=== PATIENT | female | born 1965 | race Caucasian/White ===

== ENCOUNTER → 2017-05-18 | Outpatient (CLI) | payer BC ==
--- NOTE | 2017-05-19 15:17 | MM ---
Reason for exam: screening (asymptomatic). Last mammogram was performed 1 year and 2 months ago. History: Patient is nulliparous. Physical Findings: A clinical breast exam by your physician is recommended on an annual basis and results should be correlated with mammographic findings. MG Screening Mammo w CAD Bilateral CC and MLO view(s) were taken. Prior study comparison: March 24, 2016, bilateral MG screening mammo w CAD. The breast tissue is heterogeneously dense. This may lower the sensitivity of mammography. No significant changes when compared with prior studies. ASSESSMENT: Benign, BI-RAD 2 RECOMMENDATION: Routine screening mammogram of both breasts in 1 year.
== END | disposition home or self-care (01) ==
LOC: RADMAMWWP 07:30
PROVIDERS: ATTEND Family Medicine
DX: Z12.31 Encounter for screening mammogram for malignant neoplasm of breast (principal)

== ENCOUNTER → 2018-12-06 | Outpatient (CLI) | payer BC ==
--- NOTE | 2018-12-07 11:59 | MM ---
Reason for exam: screening (asymptomatic). Last mammogram was performed 1 year and 7 months ago. History: Patient is nulliparous. Physical Findings: A clinical breast exam by your physician is recommended on an annual basis and results should be correlated with mammographic findings. MG Screening Mammo w CAD Bilateral CC and MLO view(s) were taken. Prior study comparison: May 18, 2017, bilateral MG screening mammo w CAD. March 24, 2016, bilateral MG screening mammo w CAD. The breast tissue is heterogeneously dense. This may lower the sensitivity of mammography. Stable benign calcifications. There is no discrete abnormality. No significant changes when compared with prior studies. ASSESSMENT: Benign, BI-RAD 2 RECOMMENDATION: Routine screening mammogram of both breasts in 1 year.
== END | disposition home or self-care (01) ==
LOC: RADMAMWWP 07:57
PROVIDERS: ATTEND Family Medicine
DX: Z12.31 Encounter for screening mammogram for malignant neoplasm of breast (principal)
CPT/HCPCS: 77067

== ENCOUNTER → 2020-01-28 | Outpatient (CLI) | payer OTHER ==
--- NOTE | 2020-01-28 12:51 | XR ---
EXAMINATION TYPE: XR chest 2V DATE OF EXAM: 01/28/2020 COMPARISON: None INDICATION: Pneumonitis due to inhalation of bleach TECHNIQUE: Frontal and lateral views of the chest are obtained. FINDINGS: The heart size is normal. The pulmonary vasculature is normal. The lungs are clear. IMPRESSION: 1. No acute pulmonary process.
== END | disposition home or self-care (01) ==
LOC: RADXRMAIN 12:19
PROVIDERS: ATTEND Emergency Medicine
DX: J69.8 Pneumonitis due to inhalation of other solids and liquids (principal)
CPT/HCPCS: 71046

== ENCOUNTER → 2020-02-16 | Outpatient (CLI) | payer BC | END | disposition home or self-care (01) | LOC: LABWHC1 10:46 | PROVIDERS: ATTEND Surgery | DX: U07.1 COVID-19 (principal) | CPT/HCPCS: 87635 ==

== ENCOUNTER 2020-02-18 09:41 | Day surgery (SDC) | payer BC ==
[~2020-02-18 09:41] MED LIST: LACTATED RINGERS 1,000 ML IV SCH; LIDOCAINE 1% (10MG/ML) FOR IV START INTRADERMA PRN
[2020-02-18 11:28] VITALS: TEMP 97.9
[2020-02-18] MEDS ORDERED: PROPOFOL 10 MG/ML 20 ML VIAL IV ONE (11:43)
--- NOTE | 2020-02-18 11:50 | P.GSHP ---
History of Present Illness H&P Date: 02/18/20 Chief Complaint: GERD This a 54-year-old female presents today for EGD. Patient with GERD. Medications and Allergies Home Medications Medication Instructions Recorded Confirmed Type Levothyroxine Sodium [Synthroid] 50 mcg PO DAILY 02/18/20 02/18/20 History Allergies Allergy/AdvReac Type Severity Reaction Status Date / Time No Known Allergies Allergy Verified 02/18/20 11:10 Surgical - Exam Vital Signs Temp Pulse Resp BP Pulse Ox 97.9 F 77 17 140/75 98 02/18/20 11:27 02/18/20 11:27 02/18/20 11:27 02/18/20 11:27 02/18/20 11:27 - General well developed, well nourished, no distress - Eyes PERRL - ENT normal pinna - Neck no masses - Respiratory normal expansion - Cardiovascular Rhythm: regular - Abdomen Abdomen: soft, non tender Assessment and Plan Assessment: GERD. We'll perform EGD.
--- NOTE | 2020-02-18 12:00 | P.OP ---
Date of Procedure: 02/18/20 Preoperative Diagnosis: GERD Postoperative Diagnosis: Antral gastritis Small hiatal hernia Esophagitis Procedure(s) Performed: EGD Anesthesia: MAC Surgeon: Dallas Valera Pathology: other (Antrum, esophagus) Condition: stable Disposition: PACU Description of Procedure: Patient's placed on the endoscopy table in the lateral position. She received IV sedation. The gastroscope placed oropharynx and passed in the esophagus and into the stomach. Scope was then placed through the pylorus. The first and second portion of the duodenum appeared normal. Scope was then brought back the antrum this. Mildly inflamed. A biopsies performed. Scope was then retroflexed the remainder of the stomach appeared normal. There was a small hiatal hernia. The GE junction was at 38 cm. The distal esophagus appeared inflamed. A biopsies performed. The proximal esophagus appeared normal. Scope was withdrawn for patient.
[2020-02-18 12:08] VITALS: RESP 16
[2020-02-18 12:45] VITALS: BP 109/71; PULSE 73
== END 2020-02-18 12:45 | disposition home or self-care (01) ==
LOC: ORWHC2ENDO 09:41
PROVIDERS: ATTEND Surgery
DX: K29.50 Unspecified chronic gastritis without bleeding (principal); K21.0 Gastro-esophageal reflux disease with esophagitis; K44.9 Diaphragmatic hernia without obstruction or gangrene; Z79.890 Hormone replacement therapy; E07.9 Disorder of thyroid, unspecified
CPT/HCPCS: 88305; 43239; J2704

== ENCOUNTER → 2020-08-19 | Outpatient (CLI) | payer BC ==
--- NOTE | 2020-08-20 09:26 | MM ---
Reason for exam: screening (asymptomatic). Last mammogram was performed 1 year and 8 months ago. History: Patient is nulliparous. Physical Findings: A clinical breast exam by your physician is recommended on an annual basis and results should be correlated with mammographic findings. MG Screening Mammo w CAD Bilateral CC and MLO view(s) were taken. Prior study comparison: December 06, 2018, bilateral MG screening mammo w CAD. May 18, 2017, bilateral MG screening mammo w CAD. The breast tissue is heterogeneously dense. This may lower the sensitivity of mammography. Finding #1: There is a 7 mm equal density (isodense) mass in the upper outer quadrant of the right breast. Finding #2: There are typically benign calcifications in both breasts. ASSESSMENT: Incomplete: need additional imaging evaluation, BI-RAD 0 RECOMMENDATION: Special view mammogram of the right breast. If lesion persists on supplemental views, image directed ultrasound is recommended. [facility] will attempt to contact patient to return for supplemental views and ultrasound if indicated.
== END | disposition home or self-care (01) ==
LOC: RADMAMWWP 07:49
PROVIDERS: ATTEND Family Medicine
DX: Z12.31 Encounter for screening mammogram for malignant neoplasm of breast (principal)
CPT/HCPCS: 77067

== ENCOUNTER → 2020-08-21 | Outpatient (CLI) | payer BC ==
--- NOTE | 2020-08-21 09:02 | MM ---
Reason for exam: additional evaluation requested from abnormal screening. Last mammogram was performed less than 1 month ago. History: Patient is nulliparous. Physical Findings: Nurse did not find any significant physical abnormalities on exam. MG 3D Work Up W/Cad RT Spot compression CC, spot compression MLO, and LM view(s) were taken of the right breast. Prior study comparison: August 19, 2020, bilateral MG screening mammo w CAD. December 06, 2018, bilateral MG screening mammo w CAD. The breast tissue is heterogeneously dense. This may lower the sensitivity of mammography. There is no discrete abnormality. These results were verbally communicated with the patient and result sheet given to the patient on 08/21/20. ASSESSMENT: Negative, BI-RAD 1 RECOMMENDATION: Return to routine screening mammogram schedule for both breasts.
== END | disposition home or self-care (01) ==
LOC: RADMAMWWP 06:57
PROVIDERS: ATTEND Family Medicine
DX: R92.8 Other abnormal and inconclusive findings on diagnostic imaging of breast (principal)
CPT/HCPCS: 77061; 77065

== ENCOUNTER → 2021-10-21 | Outpatient (CLI) | payer BC ==
--- NOTE | 2021-10-22 14:07 | MM ---
Reason for exam: screening (asymptomatic). Last mammogram was performed 1 year and 2 months ago. History: Patient is nulliparous. Physical Findings: A clinical breast exam by your physician is recommended on an annual basis and results should be correlated with mammographic findings. MG Screening Mammo w CAD Bilateral CC and MLO view(s) were taken. Prior study comparison: August 21, 2020, right breast MG 3d work up w/cad RT. August 19, 2020, bilateral MG screening mammo w CAD. The breast tissue is heterogeneously dense. This may lower the sensitivity of mammography. There are benign appearing round calcifications bilaterally. There is no discrete abnormality. ASSESSMENT: Benign, BI-RAD 2 RECOMMENDATION: Routine screening mammogram of both breasts in 1 year.
== END | disposition home or self-care (01) ==
LOC: RADMAMWWP 16:03
PROVIDERS: ATTEND Family Medicine
DX: Z12.31 Encounter for screening mammogram for malignant neoplasm of breast (principal)
CPT/HCPCS: 77067

== ENCOUNTER 2022-04-24 09:10 | Observation (INO) | payer BC ==
[2022-04-24] MEDS ORDERED: NITROGLYCERIN OINT 1 INCH/GM PACKET TOPICAL STA (09:24)
[2022-04-24] MEDS ORDERED: ASPIRIN 81 MG PO STA (09:24)
--- NOTE | 2022-04-24 09:27 | ED ---
General Adult HPI - General Chief complaint: Chest Pain Stated complaint: chest pain Time Seen by Provider: 04/24/22 09:17 Source: patient, RN notes reviewed Mode of arrival: wheelchair Limitations: no limitations - History of Present Illness Initial comments: Patient is a pleasant 56-year-old female presenting to the emergency Department with chest discomfort. Patient has been having some symptoms for the past month. Patient also has a recent diagnosis of mouth cancer with plan for treatment starting in 10 days. Patient is supposed to have a heart catheterization coming up. Today discomfort seemed somewhat worse, rated 6/10. Discomfort with difficulty describing. There was some radiation towards the left arm. Patient was a little bit sweaty. No nausea. No dyspnea. Discomfort has improved and currently is 2/10. - Related Data Home Medications Medication Instructions Recorded Confirmed Levothyroxine Sodium [Synthroid] 50 mcg PO DAILY 02/18/20 02/18/20 Allergies Allergy/AdvReac Type Severity Reaction Status Date / Time No Known Allergies Allergy Verified 04/24/22 09:15 Review of Systems ROS Statement: Those systems with pertinent positive or pertinent negative responses have been documented in the HPI. ROS Other: All systems not noted in ROS Statement are negative. Constitutional: Denies: fever Eyes: Denies: eye pain ENT: Reports: as per HPI. Denies: ear pain Respiratory: Denies: cough, dyspnea Cardiovascular: Reports: as per HPI, chest pain Endocrine: Denies: fatigue Gastrointestinal: Denies: abdominal pain, nausea, vomiting Genitourinary: Denies: dysuria Musculoskeletal: Denies: back pain Skin: Denies: rash Neurological: Denies: weakness Past Medical History Past Medical History: Cancer Additional Past Medical History / Comment(s): oral cancer History of Any Multi-Drug Resistant Organisms: None Reported Past Surgical History: Hysterectomy Smoking Status: Never smoker Past Alcohol Use History: None Reported, Occasional Past Drug Use History: None Reported General Exam Limitations: no limitations General appearance: alert, in no apparent distress Head exam: Present: normocephalic Eye exam: Present: normal appearance ENT exam: Present: other (Moderate sized lesion left posterior tongue) Neck exam: Present: normal inspection Respiratory exam: Present: normal lung sounds bilaterally Cardiovascular Exam: Present: regular rate, normal heart sounds Expanded Peripheral pulses: 2+: Radial (R), Radial (L), Posterior Tibialis (R), Posterior Tibialis (L) GI/Abdominal exam: Present: soft. Absent: tenderness Extremities exam: Present: normal inspection. Absent: pedal edema, calf tenderness Neurological exam: Present: alert Psychiatric exam: Present: normal affect, normal mood Skin exam: Present: normal color Course Vital Signs 04/24/22 09:12 Temperature 97.6 F Pulse Rate 47 L Respiratory 18 Rate Blood Pressure 145/80 O2 Sat by Pulse 98 Oximetry EKG Findings - EKG Comments: EKG Findings:: Sinus rhythm with frequent supraventricular premature complexes with a rate of 68. [place] 1622. QRS 84. QT 391. QTC 408. Normal axis. Normal QRS. No acute ST change. Medical Decision Making - Medical Decision Making Patient reevaluated and resting comfortably in bed. Patient and family updated on results and plan. Case discussed with Dr. Bowie, who will admit covering Dr. Torres, who admits for Dr. Julien. She does agree with ordering computed tomography scan - Lab Data Result diagrams: 04/24/22 09:36 04/24/22 09:36 Lab Results 04/24/22 04/24/22 04/24/22 Range/Units 09:36 09:36 09:36 WBC 7.2 (3.8-10.6) k/uL RBC 4.78 (3.80-5.40) m/uL Hgb 14.7 (11.4-16.0) gm/dL Hct 44.9 (34.0-46.0) % MCV 94.0 (80.0-100.0) fL MCH 30.8 (25.0-35.0) pg MCHC 32.8 (31.0-37.0) g/dL RDW 12.7 (11.5-15.5) % Plt Count 203 (150-450) k/uL MPV 8.1 Neutrophils % 72 % Lymphocytes % 15 % Monocytes % 8 % Eosinophils % 3 % Basophils % 1 % Neutrophils # 5.2 (1.3-7.7) k/uL Lymphocytes # 1.1 (1.0-4.8) k/uL Monocytes # 0.6 (0-1.0) k/uL Eosinophils # 0.2 (0-0.7) k/uL Basophils # 0.1 (0-0.2) k/uL PT 10.4 (9.0-12.0) sec INR 0.9 (<1.2) APTT 24.7 (22.0-30.0) sec D-Dimer 0.72 H (<0.60) mg/L FEU Sodium 138 (137-145) mmol/L Potassium 4.0 (3.5-5.1) mmol/L Chloride 107 (98-107) mmol/L Carbon Dioxide 25 (22-30) mmol/L Anion Gap 6 mmol/L BUN 24 H (7-17) mg/dL Creatinine 0.59 (0.52-1.04) mg/dL Est GFR (CKD-EPI)AfAm >90 (>60 ml/min/1.73 sqM) Est GFR (CKD-EPI)NonAf >90 (>60 ml/min/1.73 sqM) Glucose 104 H (74-99) mg/dL Calcium 9.0 (8.4-10.2) mg/dL Magnesium 2.0 (1.6-2.3) mg/dL Total Bilirubin 0.5 (0.2-1.3) mg/dL AST 29 (14-36) U/L ALT 24 (4-34) U/L Alkaline Phosphatase 75 (38-126) U/L Troponin I (0.000-0.034) ng/mL Total Protein 6.6 (6.3-8.2) g/dL Albumin 4.0 (3.5-5.0) g/dL 04/24/22 Range/Units 09:36 WBC (3.8-10.6) k/uL RBC (3.80-5.40) m/uL Hgb (11.4-16.0) gm/dL Hct (34.0-46.0) % MCV (80.0-100.0) fL MCH (25.0-35.0) pg MCHC (31.0-37.0) g/dL RDW (11.5-15.5) % Plt Count (150-450) k/uL MPV Neutrophils % % Lymphocytes % % Monocytes % % Eosinophils % % Basophils % % Neutrophils # (1.3-7.7) k/uL Lymphocytes # (1.0-4.8) k/uL Monocytes # (0-1.0) k/uL Eosinophils # (0-0.7) k/uL Basophils # (0-0.2) k/uL PT (9.0-12.0) sec INR (<1.2) APTT (22.0-30.0) sec D-Dimer (<0.60) mg/L FEU Sodium (137-145) mmol/L Potassium (3.5-5.1) mmol/L Chloride (98-107) mmol/L Carbon Dioxide (22-30) mmol/L Anion Gap mmol/L BUN (7-17) mg/dL Creatinine (0.52-1.04) mg/dL Est GFR (CKD-EPI)AfAm (>60 ml/min/1.73 sqM) Est GFR (CKD-EPI)NonAf (>60 ml/min/1.73 sqM) Glucose (74-99) mg/dL Calcium (8.4-10.2) mg/dL Magnesium (1.6-2.3) mg/dL Total Bilirubin (0.2-1.3) mg/dL AST (14-36) U/L ALT (4-34) U/L Alkaline Phosphatase (38-126) U/L Troponin I <0.012 (0.000-0.034) ng/mL Total Protein (6.3-8.2) g/dL Albumin (3.5-5.0) g/dL - Radiology Data Radiology results: image reviewed (Chest x-ray shows no acute process.) Disposition Clinical Impression: Chest pain Disposition: ADMITTED IP TO THIS [facility] Is patient prescribed a controlled substance at d/c from ED?: No Referrals: Kiera Julien DO [Primary Care Provider] - 1-2 days Time of Disposition: 11:02
[2022-04-24 10:05] LABS: Basophils # (A) 0.1 k/uL (0-0.2); Basophils % (A) 1 %; Eosinophils # (A) 0.2 k/uL (0-0.7); Eosinophils % (A) 3 %; HCT 44.9 % (34.0-46.0); HGB 14.7 gm/dL (11.4-16.0); Lymphocytes # (A) 1.1 k/uL (1.0-4.8); Lymphocytes % (A) 15 %; MCH 30.8 pg (25.0-35.0); MCHC 32.8 g/dL (31.0-37.0); Mean Platelet Volume 8.1; Monocytes # (A) 0.6 k/uL (0-1.0); Monocytes % (A) 8 %; Neutrophils # (A) 5.2 k/uL (1.3-7.7); Neutrophils % (A) 72 %; Platelet Count 203 k/uL (150-450); RBC 4.78 m/uL (3.80-5.40); RDW 12.7 % (11.5-15.5); WBC 7.2 k/uL (3.8-10.6)
--- NOTE | 2022-04-24 10:26 | XR ---
EXAMINATION TYPE: XR chest 2V DATE OF EXAM: 04/24/2022 COMPARISON: Chest x-ray January 28, 2020 HISTORY: Chest pain and lightheadedness. TECHNIQUE: Frontal and lateral views of the chest are obtained. FINDINGS: There is no suspicious focal air space opacity, pleural effusion, or pneumothorax seen. T he cardiac silhouette size remains within normal limits. The osseous structures are intact. Overlyi ng EKG leads noted on current study. IMPRESSION: No acute process. No significant change from prior.
[2022-04-24 10:34] LABS: ALT 24 U/L (4-34); AST 29 U/L (14-36); African American GFR (CKD) >90 (>60 ml/min/1.73 sqM); Alkaline Phosphatase 75 U/L (38-126); Anion Gap 6 mmol/L; Blood Urea Nitrogen 24 mg/dL (7-17); Carbon Dioxide 25 mmol/L (22-30); Chloride 107 mmol/L (98-107); Glucose 104 mg/dL (74-99); Non-African American GFR(CKD) >90 (>60 ml/min/1.73 sqM); Sodium 138 mmol/L (137-145); Total Bilirubin 0.5 mg/dL (0.2-1.3); Total Protein 6.6 g/dL (6.3-8.2)
[2022-04-24 10:40] LABS: INR 0.9 (<1.2); Partial Thromboplastin Time 24.7 sec (22.0-30.0); Prothrombin Time 10.4 sec (9.0-12.0)
[2022-04-24] MEDS ORDERED: NITROGLYCERIN SL TABS 0.4 MG TAB SUBLINGUAL PRN (11:03)
--- NOTE | 2022-04-24 12:18 | CT ---
EXAMINATION TYPE: CT angio chest DATE OF EXAM: 04/24/2022 COMPARISON: Same-day chest x-ray HISTORY: chest pain CT DLP: 242.4 mGycm. Automated Exposure Control for Dose Reduction was Utilized. CONTRAST: CTA scan of the thorax is performed with IV Contrast, patient injected with 62 mL of Isovue 370, pulm onary embolism protocol. MIP Images are created on CT scanner and reviewed. FINDINGS: LUNGS: The lungs are grossly clear, there is no concerning parenchymal mass or nodule identified. T here is no pleural effusion or pneumothorax seen. The tracheobronchial tree is patent. MEDIASTINUM: There is satisfactory enhancement of the pulmonary artery and its branches, there is no CT evidence for pulmonary embolism. Satisfactory enhancement of the thoracic aorta without aneurysm o r dissection. Mild peripheral plaque in the aortic arch. Small sized thyroid gland. There are no gre ater than 1 cm hilar or mediastinal lymph nodes. No cardiomegaly or pericardial effusion is seen. OTHER: Small 8 mm low dense right adrenal mass axial image 137 favors benign adenoma. IMPRESSION: No CT evidence for acute pulmonary embolism. No acute pulmonary process.
[2022-04-24] MEDS: NITROGLYCERIN OINT 1 INCH/GM PACKET TOPICAL SCH ×2 (14:03→17:02)
[2022-04-24] MEDS: LEVOTHYROXINE 50 MCG TAB PO SCH (14:40)
--- NOTE | 2022-04-24 20:09 | P.HPIM ---
History of Present Illness H&P Date: 04/24/22 Chief Complaint: Chest pain 56-year-old female presenting to the emergency Department with chest discomfort. Patient has been having some symptoms for the past month. Patient also has a recent diagnosis of mouth cancer with plan for treatment starting in 10 days. Patient is supposed to have a heart catheterization coming up. Today discomfort seemed somewhat worse, rated 6/10. Discomfort with difficulty describing. There was some radiation towards the left arm. Patient was a little bit sweaty. No nausea. No dyspnea. Discomfort has improved and currently is 2/10. EKG Findings:: Sinus rhythm with frequent supraventricular premature complexes with a rate of 68. [place] 1622. QRS 84. QT 391. QTC 408. Normal axis. Normal QRS. No acute ST change. Lab work reveals evidence of some 0.2, hemoglobin 14.7 and platelet count of 203, sodium 138, potassium 4.0, BUN/creatinine of 24/0.59 and blood glucose of 104; troponin of less than 0.012; d-dimer elevated at 0.7 to - CTA chest completed which is negative for PE Chest x-ray reveals no acute process Review of Systems REVIEW OF SYSTEMS: CONSTITUTIONAL: No fever, no malaise, no fatigue. HEENT: No recent visual problems or hearing problems. Denied any sore throat. CARDIOVASCULAR: chest pain, orthopnea, PND, no palpitations, no syncope. PULMONARY: No shortness of breath, no cough, no hemoptysis. GASTROINTESTINAL: No diarrhea, no nausea, no vomiting, no abdominal pain. NEUROLOGICAL: No headaches, no weakness, no numbness. HEMATOLOGICAL: Denies any bleeding or petechiae. GENITOURINARY: Denies any burning micturition, frequency, or urgency. MUSCULOSKELETAL/RHEUMATOLOGICAL: Denies any joint pain, swelling, or any muscle pain. ENDOCRINE: Denies any polyuria or polydipsia. The rest of the 14-point review of systems is negative. Past Medical History Past Medical History: Cancer Additional Past Medical History / Comment(s): oral cancer History of Any Multi-Drug Resistant Organisms: None Reported Past Surgical History: Hysterectomy Smoking Status: Never smoker Past Alcohol Use History: None Reported, Occasional Past Drug Use History: None Reported Medications and Allergies Home Medications Medication Instructions Recorded Confirmed Type Levothyroxine Sodium [Synthroid] 50 mcg PO DAILY 02/18/20 04/24/22 History Aspirin EC [Ecotrin Low Dose] 81 mg PO DAILY 04/24/22 04/24/22 History Atorvastatin [Lipitor] 20 mg PO HS 04/24/22 04/24/22 History oxyCODONE HCL 5 mg PO Q4H PRN 04/24/22 04/24/22 History Allergies Allergy/AdvReac Type Severity Reaction Status Date / Time tramadol AdvReac LIGHTHEADED Verified 04/24/22 11:57 Physical Exam Vitals: Vital Signs Temp Pulse Pulse Resp BP BP Pulse Ox 04/24/22 12:20 98.0 F 74 16 161/82 98 04/24/22 09:12 97.6 F 47 L 18 145/80 98 Intake and Output 04/23/22 04/24/22 04/24/22 22:59 06:59 14:59 Other: Weight 81.647 kg PHYSICAL EXAMINATION: GENERAL: The patient is alert and oriented x3, not in any acute distress. Well developed, well nourished. HEENT: Pupils are round and equally reacting to light. EOMI. No scleral icterus. No conjunctival pallor. Normocephalic, atraumatic. No pharyngeal erythema. No thyromegaly. CARDIOVASCULAR: S1 and S2 present. No murmurs, rubs, or gallops. PULMONARY: Chest is clear to auscultation, no wheezing or crackles. ABDOMEN: Soft, nontender, nondistended, normoactive bowel sounds. No palpable organomegaly. MUSCULOSKELETAL: No joint swelling or deformity. EXTREMITIES: No cyanosis, clubbing, or pedal edema. NEUROLOGICAL: Gross neurological examination did not reveal any focal deficits. SKIN: No rashes. Results CBC & Chem 7: 04/24/22 09:36 04/24/22 09:36 Labs: Abnormal Lab Results - Last 24 Hours (Table) 04/24/22 04/24/22 Range/Units 09:36 09:36 D-Dimer 0.72 H (<0.60) mg/L FEU BUN 24 H (7-17) mg/dL Glucose 104 H (74-99) mg/dL Thrombosis Risk Factor Assmnt - Choose All That Apply Each Factor Represents 1 point: Age 41-60 years, Obesity (BMI >25) Other Risk Factors: No Other congenital or acquired thrombophilia - If yes, enter type in comment: No Thrombosis Risk Factor Assessment Total Risk Factor Score: 2 Thrombosis Risk Factor Assessment Level: Low Risk Assessment and Plan Assessment: 1. Chest pain - We will monitor EKG and trend troponin; order 2-D echo; start patient on aspirin - Cardiology consult 2. Hypothyroidism; levothyroxine 50 MCG daily 3. Mild AK I; increase fluid intake DVT prophylaxis; SCDs CODE STATUS; full code
[2022-04-24] MEDS: ATORVASTATIN 20 MG TAB PO SCH (20:12)
[2022-04-25] MEDS: NITROGLYCERIN OINT 1 INCH/GM PACKET TOPICAL SCH ×5 (01:49→23:29)
[2022-04-25] MEDS: LEVOTHYROXINE 50 MCG TAB PO SCH (05:59)
[2022-04-25] MEDS: ASPIRIN 81 MG PO SCH (08:07)
[2022-04-25] MEDS ORDERED: ASPIRIN 325 MG TAB PO SCH (09:00)
[2022-04-25 10:27] LABS: Chol/HDL Ratio 2.79 Ratio; LDL Cholesterol,Calculated 60.2 mg/dL (0.0-131.0)
[2022-04-25] MEDS ORDERED: ATORVASTATIN 80 MG TAB PO STA (16:25)
[2022-04-25] MEDS ORDERED: NITROGLYCERIN SL TABS 0.4 MG TAB SUBLINGUAL PRN (16:25)
[2022-04-25] MEDS ORDERED: ASPIRIN 325 MG TAB PO STA (16:25)
[2022-04-25] MEDS ORDERED: ALPRAZolam 0.5 MG TAB PO PRN (16:25)
[2022-04-25] MEDS ORDERED: ALPRAZolam 0.25 MG TAB PO PRN (16:25)
--- NOTE | 2022-04-25 16:25 | P.CRDCN ---
History of Present Illness History of present illness: HISTORY OF PRESENTING ILLNESS Patient is pleasant 56-year-old female with history of hypothyroidism, hyperlipidemia and tongue cancer recently diagnosed and awaiting surgery. She has had workup through 140s and recently had a biopsy of her tongue. This came back cancerous and has not been any concern of metastasis however does cover the majority of the left side of her tongue. She underwent preoperative workup secondary to having some chest pain and underwent a stress test which was abnormal with recommendations for heart catheterization tomorrow at [facility]. She has been having off-and-on chest pain which is not typically associated with exertion however can occur when she is more stressed. Troponins noted to be normal 3, EKG normal sinus rhythm with no significant ST or T wave abnormalities and CTA showed no evidence for PE.. REVIEW OF SYSTEMS At the time of my exam: CONSTITUTIONAL: Denies fever or chills. CARDIOVASCULAR: +chest pain, no shortness of breath, orthopnea, PND or palpitations. RESPIRATORY: Denies cough. GASTROINTESTINAL: Denies abdominal pain, diarrhea, constipation, nausea or vomiting. MUSCULOSKELETAL: Denies myalgias. NEUROLOGIC: Denies numbness, tingling or weakness. ENDOCRINE: Denies fatigue, weight change, polydipsia or polyurina. GENITOURINARY: Denies burning, hematuria or urgency with micturation. HEMATOLOGIC: Denies history of anemia or bleeding. PHYSICAL EXAMINATION Vital signs reviewed. CONSTITUTIONAL: No apparent distress. HEENT: Head is normocephalic. Pupils are equal, round. Sclerae anicteric. Mucous membranes of the mouth are moist. No JVD. No carotid bruit. CHEST EXAMINATION: Lungs are clear to auscultation. No chest wall tenderness is noted on palpation or with deep breathing. HEART EXAMINATION: Regular rate and rhythm. S1, S2 heard. No murmurs, gallops or rub. ABDOMEN: Soft, nontender. Positive bowel sounds. EXTREMITIES: 2+ peripheral pulses, no lower extremity edema and no calf tenderness. NEUROLOGIC EXAMINATION: Patient is awake, alert and oriented x3. ASSESSMENT 1. Atypical chest pain, troponin is normal 3 2. Tongue cancer 3. Hyperlipidemia 4. Abnormal stress test 5. Preoperative cardiovascular exam PLAN Patient with prior workup with recommendations for heart catheterization. Patient had called [facility] and not on the list for procedure tomorrow. Discussed option for heart catheterization here and patient would prefer here for definitive answer. Left heart catheterization 04/26. [facility] Past Medical History Past Medical History: Cancer Additional Past Medical History / Comment(s): oral cancer History of Any Multi-Drug Resistant Organisms: None Reported Past Surgical History: Hysterectomy Smoking Status: Never smoker Past Alcohol Use History: None Reported, Occasional Past Drug Use History: None Reported Medications and Allergies Home Medications Medication Instructions Recorded Confirmed Type Levothyroxine Sodium [Synthroid] 50 mcg PO DAILY 02/18/20 04/24/22 History Aspirin EC [Ecotrin Low Dose] 81 mg PO DAILY 04/24/22 04/24/22 History Atorvastatin [Lipitor] 20 mg PO HS 04/24/22 04/24/22 History oxyCODONE HCL 5 mg PO Q4H PRN 04/24/22 04/24/22 History Allergies Allergy/AdvReac Type Severity Reaction Status Date / Time tramadol AdvReac LIGHTHEADED Verified 04/24/22 11:57 Physical Exam Vitals: Vital Signs Temp Pulse Resp BP Pulse Ox 04/25/22 15:18 98.4 F 64 16 109/73 96 04/25/22 08:12 16 04/25/22 07:19 98.0 F 55 L 16 106/68 98 04/25/22 03:24 98.0 F 59 L 17 110/72 96 04/25/22 01:56 86 04/24/22 19:21 98.0 F 86 16 117/75 94 L Intake and Output 04/25/22 04/25/22 04/25/22 06:59 14:59 22:59 Other: Voiding Method Toilet # Voids 2 1 2 Results 04/24/22 09:36 04/24/22 09:36 Cardiac Enzymes 04/24/22 Range/Units 15:58 Troponin I <0.012 (0.000-0.034) ng/mL Lipids 04/25/22 Range/Units 04:47 Triglycerides 126.00 (0.00-149.00) mg/dL Cholesterol 133.00 (0.00-200.00) mg/dL HDL Cholesterol 47.60 (40.00-60.00) mg/dL Cholesterol/HDL Ratio 2.79 Ratio Current Medications Generic Name Dose Route Start Last Admin Trade Name Freq PRN Reason Stop Dose Admin Aspirin 81 mg 04/25/22 09:00 04/25/22 08:07 Aspirin 81 Mg PO 81 mg DAILY YUNI Administration Atorvastatin Calcium 20 mg 04/24/22 21:00 04/24/22 20:12 Atorvastatin 20 Mg Tab PO 20 mg HS YUNI Administration Levothyroxine Sodium 50 mcg 04/24/22 13:15 04/25/22 05:59 Levothyroxine 50 Mcg Tab PO 50 mcg 0630 YUNI Administration Nitroglycerin 0.4 mg 04/24/22 11:03 Nitroglycerin Sl Tabs 0.4 Mg Tab SUBLINGUAL Q5M PRN Chest Pain Nitroglycerin 1 inch 04/24/22 12:00 04/25/22 12:59 Nitroglycerin Oint 1 Inch/Gm Packet TOPICAL Not Given Q6HR [facility] Oxycodone HCl 5 mg 04/24/22 13:12 04/25/22 03:06 Oxycodone Hcl 5 Mg Tab PO 5 mg Q4H PRN Administration Pain Intake and Output 04/25/22 04/25/22 04/25/22 06:59 14:59 22:59 Other: Voiding Method Toilet # Voids 2 1 2 04/24/22 09:36 04/24/22 09:36
--- NOTE | 2022-04-25 17:59 | P.PN ---
Subjective Progress Note Date: 04/25/22 Principal diagnosis: Chest pain/unstable angina 56-year-old female presenting to the emergency Department with chest discomfort. Patient has been having some symptoms for the past month. Patient also has a recent diagnosis of mouth cancer with plan for treatment starting in 10 days. Patient is supposed to have a heart catheterization coming up. Today discomfort seemed somewhat worse, rated 6/10. Discomfort with difficulty describing. There was some radiation towards the left arm. Patient was a little bit sweaty. No nausea. No dyspnea. Discomfort has improved and currently is 2/10. EKG Findings:: Sinus rhythm with frequent supraventricular premature complexes with a rate of 68. ND 1622. QRS 84. QT 391. QTC 408. Normal axis. Normal QRS. No acute ST change. Lab work reveals evidence of some 0.2, hemoglobin 14.7 and platelet count of 203, sodium 138, potassium 4.0, BUN/creatinine of 24/0.59 and blood glucose of 104; troponin of less than 0.012; d-dimer elevated at 0.7 to - CTA chest completed which is negative for PE Chest x-ray reveals no acute process 04/25/2022 Patient is seen and evaluated in room at bedside and denies any complaint of any further chest pain or shortness of breath; patient reports she has been scheduled for cardiac catheterization at [facility] tomorrow where she was diagnosed with oral cancer and will be starting her treatment soon -- Patient to be evaluated by cardiology with likely left heart catheterization while inpatient Objective - Vital Signs Vital signs: Vital Signs Temp 98.0 F 04/25/22 07:19 Pulse 55 L 04/25/22 07:19 Resp 16 04/25/22 08:12 BP 106/68 04/25/22 07:19 Pulse Ox 98 04/25/22 07:19 FiO2 Intake & Output 04/24/22 04/25/22 04/25/22 18:59 06:59 18:59 Intake Total 358 Balance 358 Weight 81.647 kg Intake: Oral 358 Other: Voiding Method Toilet Toilet Toilet # Voids 2 2 2 - Exam PHYSICAL EXAMINATION: GENERAL: The patient is alert and oriented x3, not in any acute distress. Well developed, well nourished. HEENT: Pupils are round and equally reacting to light. EOMI. No scleral icterus. No conjunctival pallor. Normocephalic, atraumatic. No pharyngeal erythema. No thyromegaly. CARDIOVASCULAR: S1 and S2 present. No murmurs, rubs, or gallops. PULMONARY: Chest is clear to auscultation, no wheezing or crackles. ABDOMEN: Soft, nontender, nondistended, normoactive bowel sounds. No palpable organomegaly. MUSCULOSKELETAL: No joint swelling or deformity. EXTREMITIES: No cyanosis, clubbing, or pedal edema. NEUROLOGICAL: Gross neurological examination did not reveal any focal deficits. SKIN: No rashes. - Labs CBC & Chem 7: 04/24/22 09:36 04/24/22 09:36 Assessment and Plan Assessment: 1. Chest pain - We will monitor EKG and trend troponin; order 2-D echo; start patient on aspirin - Cardiology consult 2. Hypothyroidism; levothyroxine 50 MCG daily 3. Mild AK I; increase fluid intake DVT prophylaxis; SCDs CODE STATUS; full code
[2022-04-25] MEDS: ATORVASTATIN 20 MG TAB PO SCH (21:23)
[2022-04-26] MEDS: LEVOTHYROXINE 50 MCG TAB PO SCH (05:49)
[2022-04-26] MEDS: NITROGLYCERIN OINT 1 INCH/GM PACKET TOPICAL SCH ×2 (05:49→13:00)
[2022-04-26] MEDS ORDERED: HEPARIN SODIUM,PORCINE 2,500 UNIT in SODIUM CHLORIDE 0.9% 250 ML IRRIGATION PRN (07:00)
[2022-04-26] MEDS ORDERED: HEPARIN SODIUM,PORCINE 10,000 UNIT in SODIUM CHLORIDE 0.9% 1,000 ML IRRIGATION PRN (07:00)
[2022-04-26] MEDS ORDERED: SODIUM CHLORIDE 0.9% 1,000 ML in EMPTY BAG 1 BAG IV ONE (07:44)
[2022-04-26] MEDS: ASPIRIN 81 MG PO SCH (08:07)
[2022-04-26] MEDS ORDERED: VERAPAMIL 2.5 MG/ML 2 ML AMP ONE ×2 (12:26→12:43)
[2022-04-26] MEDS ORDERED: fentaNYL (PF) 50 MCG/ML 2 ML AMP ONE (12:33)
[2022-04-26] MEDS ORDERED: fentaNYL (PF) 50 MCG/ML 2 ML AMP IV ONE (12:36)
[2022-04-26] MEDS: MIDAZOLAM 2 MG/2 ML VIAL IV ONE ×2 (12:36→12:45)
[2022-04-26] MEDS ORDERED: IV FLUID CONTINUATION 1,000 ML IV ONE (12:42)
[2022-04-26] MEDS ORDERED: LIDOCAINE 1% INJ 10MG/ML (5 ML VIAL-PF) SQ ONE (12:44)
[2022-04-26] MEDS ORDERED: VERAPAMIL SYRINGE (5 MG/10 ML) INTRAARTER ONE (12:49)
[2022-04-26] MEDS ORDERED: HEPARIN SODIUM 1,000 UN/ML (10ML VL) ONE (12:52)
[2022-04-26] MEDS ORDERED: HEPARIN SODIUM 1,000 UN/ML (10ML VL) IV ONE (12:53)
[2022-04-26] MEDS ORDERED: IOPAMIDOL-370 125ML BTL INJ ONE (12:59)
--- NOTE | 2022-04-26 13:06 | P.CARDCATH ---
Description of Procedure: PROCEDURES PERFORMED: Left heart catheterization, bilateral coronary angiography INDICATION: Abnormal stress test, continued chest pain CONSENT:I have discussed the risks, benefits and alternative therapies for the above-mentioned procedure and for both sedation/analgesia as well as necessary blood product administration, if indicated, as they pertain to this patient. The patient has indicated understanding and acceptance of the risks and procedures discussed. PROCEDURE: After the risks, benefits and alternatives of the above mentioned procedure explained in detail with the patient, informed consent was obtained. Patient was taken to the catheterization lab and prepped and draped in usual fashion. 1% lidocaine was used to anesthetize the right radial artery. A 6- [place] sheath was placed in the right radial artery using modified Seldinger technique. Left coronary angiography was performed with a 5-[place] JL 3.5 cat heter and right coronary angiography was performed with a 5-[place] JR5 catheter in various views. A 5-[place] FR5 catheter was inserted into the left ventricle and pressure measurements were obtained. The right radial sheath was removed and a TR band was placed with hemostasis achieved. The patient tolerated the procedure well. Patient was transported back to the post catheterization holding area in stable condition. Conscious Sedation: Patient was monitored under the direct supervision of vision of myself for conscious sedation using Versed and fentanyl for a total duration of 18 minutes HEMODYNAMICS: Aortic 117/62 LV: 121/1, LVEDP 5 SELECTIVE CORONARY ARTERIOGRAPHY: LEFT MAIN: The left main is a large caliber vessel which bifurcates into the LAD and circumflex. There is no significant stenosis. LEFT ANTERIOR DESCENDING CORONARY ARTERY: LAD is a large caliber vessel which wraps around to the apex. There is no significant stenosis. LEFT CIRCUMFLEX CORONARY ARTERY: Left circumflex is a moderate caliber vessel without significant stenosis. RIGHT CORONARY ARTERY: The right coronary artery is a large caliber vessel which gives off a PDA and PLV branch and is the dominant vessel. There is no significant stenosis. FINAL IMPRESSION: 1. Normal coronary arteries as described above. 2. Normal left sided filling pressures PLAN: 1. Aggressive risk factor modification per most recent ACC/AHA guidelines. 2. Patient is cleared for surgery from a cardiology standpoint.
--- NOTE | 2022-04-26 16:03 | P.PN ---
Subjective Progress Note Date: 04/26/22 Patient evaluated today resting in bed. She does report some mild 1-2/10 left sternal chest pressure. No radiation. Pain has improved since admission. Plan is to undergo cardiac catheterization today. Patient is scheduled for tongue resection next Tuesday for new diagnosis of oral cancer. Cholesterol panel has been completed showing triglycerides of 126, cholesterol 133, LDL 60.2, HDL 47.60. She is afebrile, heart rate 66, blood pressure 114/67, 95% room air. Review of Systems Constitutional: Denied any fatigue denied any fever. Cardio vascular: denied any chest pain, palpitations Gastrointestinal: denied any nausea, vomiting, diarrhea Pulmonary: Denied any shortness of breath cough Neurologic denied any new focal deficits All inpatient medications were reviewed and appropriate changes in these medications as dictated in the interval history and assessment and plan. PHYSICAL EXAMINATION: GENERAL: The patient is alert and oriented x3, not in any acute distress. Well developed, well nourished. HEENT: Pupils are round and equally reacting to light. EOMI. No scleral icterus. No conjunctival pallor. Normocephalic, atraumatic. No pharyngeal erythema. No thyromegaly. CARDIOVASCULAR: S1 and S2 present. No murmurs, rubs, or gallops. PULMONARY: Chest is clear to auscultation, no wheezing or crackles. ABDOMEN: Soft, nontender, nondistended, normoactive bowel sounds. No palpable organomegaly. MUSCULOSKELETAL: No joint swelling or deformity. EXTREMITIES: No cyanosis, clubbing, or pedal edema. NEUROLOGICAL: Gross neurological examination did not reveal any focal deficits. SKIN: No rashes. Assessment and Plan Assessment Chest Pain rule out ACS, pending cardiac catheterization Hypothyroidism continue home medication Mild [place], patient has been hydrated Recent diagnosis oral cancer with scheduled resection GI Prophylaxis Do Not Intubate Plan Pending cardiac catheterization today Continue all other supportive care Possible DC tomorrow if cleared by cardiology The impression and plan of care has been dictated by Tarah Del Toro, Nurse Practitioner as directed. Dr. Chuckie MD I have performed a history and physical examination and medical decision making of this patient, discussed the same with the dictator, and agree with the dictators assessment and plan as written, documented as a scribe. Based on total visit time, I have performed more than 50% of this visit. Objective - Vital Signs Vital signs: Vital Signs Temp 98.2 F 04/26/22 13:10 Pulse 69 04/26/22 14:48 Resp 16 04/26/22 14:00 BP 99/65 04/26/22 14:48 Pulse Ox 95 04/26/22 14:48 FiO2 Intake & Output 04/25/22 04/26/22 04/26/22 18:59 06:59 18:59 Intake Total 240 0 250 Balance 240 0 250 Intake: IV 150 Oral 240 0 100 Other: Voiding Method Toilet Toilet # Voids 2 1 # Bowel Movements 1 - Labs CBC & Chem 7: 04/24/22 09:36 04/24/22 09:36 Assessment and Plan Time with Patient: Less than 30
[2022-04-26 16:22] VITALS: RESP 18
[2022-04-26 17:18] VITALS: BP 113/74; PULSE 54; TEMP 98.7
--- NOTE | 2022-04-27 16:05 | P.DS ---
Providers Date of admission: 04/24/22 11:03 Attending physician: Wilmar Anaya MD Consults: 04/24/22 11:03 Consult Physician Urgent Consulting Provider: Min Curry Consult Reason/Comments: cp Do you want consulting provider notified?: Yes Primary care physician: Kiera Julien Hospital Course: Diagnosis Chest Pain rule out ACS, pending cardiac catheterization Hypothyroidism continue home medication Mild [place], patient has been hydrated Recent diagnosis oral cancer with scheduled resection GI Prophylaxis Do Not Intubate Discharge Disposition Patient is stable for discharge home and will follow up with cardiology. She is post cardiac catheterization. Hospital Course This is a 56-year-old female with medical history significant for recent diagnosis of oral cancer, with thyroidism. Patient presents to the emergency department with chest discomfort that has been ongoing for the past month. She is also been undergoing outpatient workup with a carton machine operator at [facility]. She was supposed to have a heart cath outpatient has not had a scheduled yet. Patient reports the pain is 6 out of 10 on admission and does report some radiation towards the left arm as well as associated diaphoresis. There is no nausea no dyspnea. Patient was evaluated by cardiology and was recommended for cardiac catheterization. She also was found to have elevated d-dimer and chest CT angiography was completed which is negative for pulmonary embolism. Chest x- ray completed shows no acute process. EKG shows sinus rhythm with frequent superventricular premature complexes with a heart rate is 68, QT interval 408 with normal QRS and no acute ST change. Hemoglobin 14.7 platelet count 203 and sodium 138, potassium 4.0, BUN 24, creatinine 0.59 and blood glucose of 104 on admission. Troponin is negative. Cardiac catheterization shows normal coronary arteries with normal left-sided filling pressures. Cardiology has recommended aggressive risk factor modification and has been cleared for discharge. 04/26/2022 Patient evaluated today resting in bed. She does report some mild 1-2/10 left sternal chest pressure. No radiation. Pain has improved since admission. Patient is scheduled for tongue resection next Tuesday for new diagnosis of oral cancer. Cholesterol panel has been completed showing triglycerides of 126, cholesterol 133, LDL 60.2, HDL 47.60. She is afebrile, heart rate 66, blood pressure 114/67, 95% room air. She will be discharged today if cath is clear. Her lungs are clear, S1 S2 auscultated. Focal neurological exam is negative. Please see medication reconciliation for list of current medications. Thank you for allowing us to participate in the care of this patient. The impression and plan of care has been dictated by Tarah Del Toro, Nurse Practitioner as directed. Dr. Chuckie MD I have performed a history and physical examination and medical decision making of this patient, discussed the same with the dictator, and agree with the dictators assessment and plan as written, documented as a scribe. Based on total visit time, I have performed more than 50% of this visit. Patient Condition at Discharge: Stable Plan - Discharge Summary New Discharge Prescriptions: Continue Levothyroxine Sodium [Synthroid] 50 mcg PO DAILY Atorvastatin [Lipitor] 20 mg PO HS Aspirin EC [Ecotrin Low Dose] 81 mg PO DAILY oxyCODONE HCL 5 mg PO Q4H PRN PRN Reason: Pain Discharge Medication List Levothyroxine Sodium [Synthroid] 50 mcg PO DAILY 02/18/20 [History] Aspirin EC [Ecotrin Low Dose] 81 mg PO DAILY 04/24/22 [History] Atorvastatin [Lipitor] 20 mg PO HS 04/24/22 [History] oxyCODONE HCL 5 mg PO Q4H PRN 04/24/22 [History] Follow up Appointment(s)/Referral(s): Roger Ardon DO [STAFF PHYSICIAN] - 1 Week Kiera Julien DO [Primary Care Provider] - 1-2 days Patient Instructions/Handouts: *Surgery [facility] - After Heart Catheterization - Nurse Office Instructions Activity/Diet/Wound Care/Special Instructions: Follow up with cardiology at [facility] Call or return to ER for any worsening problems or concerns. No flexing at the wrist or lifting anything heavier than 5 pounfs for 5 days remove any dressing over puncture site in 24 hours and leave open to air do not submerge wrist in water for 3 days Watch hand/arm for numbness, changes in temperature and color. Discharge Disposition: HOME SELF-CARE
== END 2022-04-26 18:55 | disposition home or self-care (01) ==
LOC: EC 09:10 → 6NMEDSUR 11:03
PROVIDERS: ADMIT Family Medicine; ATTEND Family Medicine
DX: R07.89 Other chest pain (principal); R61 Generalized hyperhidrosis; R94.39 Abnormal result of other cardiovascular function study; E78.5 Hyperlipidemia, unspecified; C02.9 Malignant neoplasm of tongue, unspecified; R79.89 Other specified abnormal findings of blood chemistry; E03.9 Hypothyroidism, unspecified; N17.9 Acute kidney failure, unspecified; I49.1 Atrial premature depolarization; E66.9 Obesity, unspecified; Z68.35 Body mass index [BMI] 35.0-35.9, adult; Z87.891 Personal history of nicotine dependence; Z79.890 Hormone replacement therapy; Z79.82 Long term (current) use of aspirin; Z79.899 Other long term (current) drug therapy; Z90.710 Acquired absence of both cervix and uterus; Z71.9 Counseling, unspecified
CPT/HCPCS: 99285; 36415; 93005; 93458; 85379; 80061; 80053; 83735; 84484; 85025; 85610; 85730; 71046; 71275; G0378 ×3; C1769; C1894; J2250; J2001; J3010; J1644; Q9967 ×2

== ENCOUNTER 2023-06-12 09:11 | Emergency (ER) | payer BC ==
[2023-06-12 09:15] VITALS: BP 129/83; PULSE 85; RESP 18; TEMP 97.7
[2023-06-12] MEDS ORDERED: ORPHENADRINE 30 MG/ML 2 ML VIAL IM STA (09:37)
[2023-06-12] MEDS ORDERED: DEXAMETHASONE SOD PHOSPHATE 10 MG/ML 1 ML VIAL IM STA (09:37)
--- NOTE | 2023-06-12 09:44 | ED ---
Back Pain HPI - General Chief Complaint: Back Pain/Injury Stated Complaint: Back Pain Time Seen by Provider: 06/12/23 09:31 Source: patient, RN notes reviewed, old records reviewed Limitations: no limitations - History of Present Illness Initial Comments: 37-year-old cachectic female presents ambulatory with complaints of left lower back pain that shoots up into her left flank from her left buttock. Patient states she has chronic low back pain however this is a shooting pain that is new. States that it is worse when she bent over to waste picker water at [employer] yesterday. Did see her chiropractor on which has always helped her in the past. Denies any fevers. No dysuria or hematuria. Does have a history of oral cancer has been in remission, degenerative disc disease. MD Complaint: back pain -: days(s) (3) Similar Symptoms Previously: Yes Radiation: flank (left) Severity scale (1-10): 7 Quality: other (shooting) Consistency: intermittent Improves With: none Worsens With: movement, other (bending) Context: while lifting Associated Symptoms: denies other symptoms Treatments Prior to Arrival: other (chiropractor) - Related Data Home Medications Medication Instructions Recorded Confirmed Levothyroxine Sodium [Synthroid] 50 mcg PO DAILY 02/18/20 04/24/22 Aspirin EC [Ecotrin Low Dose] 81 mg PO DAILY 04/24/22 04/24/22 Atorvastatin [Lipitor] 20 mg PO HS 04/24/22 04/24/22 oxyCODONE HCL [Roxicodone] 5 mg PO Q4H PRN 04/24/22 04/24/22 Previous Rx's Medication Instructions Recorded Lidocaine 5% Patch [Lidoderm] 1 patch TOPICAL DAILY 14 Days #14 06/12/23 patch Allergies Allergy/AdvReac Type Severity Reaction Status Date / Time tramadol AdvReac LIGHTHEADED Verified 06/12/23 09:15 Review of Systems ROS Statement: Those systems with pertinent positive or pertinent negative responses have been documented in the HPI. ROS Other: All systems not noted in ROS Statement are negative. Past Medical History Past Medical History: Cancer Additional Past Medical History / Comment(s): oral cancer History of Any Multi-Drug Resistant Organisms: None Reported Past Surgical History: Hysterectomy Smoking Status: Never smoker Past Alcohol Use History: None Reported, Occasional Past Drug Use History: None Reported General Exam Limitations: no limitations General appearance: alert, in no apparent distress Head exam: Present: atraumatic Eye exam: Present: normal appearance. Absent: scleral icterus, conjunctival injection, periorbital swelling Neck exam: Present: full ROM. Absent: tenderness, meningismus Respiratory exam: Absent: respiratory distress, accessory muscle use Cardiovascular Exam: Present: regular rate Extremities exam: Present: full ROM, normal capillary refill. Absent: tenderness, pedal edema Back exam: Present: full ROM, tenderness (left paraspinal lumbar), muscle spasm. Absent: CVA tenderness (R), CVA tenderness (L), vertebral tenderness, rash noted Neurological exam: Present: alert, oriented X3, normal gait Psychiatric exam: Present: normal affect, normal mood Skin exam: Present: warm, dry, normal color. Absent: cyanosis, diaphoretic, petechiae, pallor Course Vital Signs 06/12/23 09:13 Temperature 97.7 F Pulse Rate 85 Respiratory 18 Rate Blood Pressure 129/83 O2 Sat by Pulse 100 Oximetry Medical Decision Making - Medical Decision Making Was pt. sent in by a medical professional or institution (, PA, HOME FIRE ALARM INSTALLER, urgent care, hospital, or care home...) When possible be specific @ -No Did you speak to anyone other than the patient for history (EMS, parent, family, police, friend...)? What history was obtained from this source @ -No Did you review nursing and triage notes (agree or disagree)? Why? @ -I reviewed and agree with nursing and triage notes Were old charts reviewed (outside hosp., previous admission, EMS record, old EKG, old radiological studies, urgent care reports/EKG's, care home records)? Report findings @ -No old charts were reviewed Differential Diagnosis (chest pain, altered mental status, abdominal pain women, abdominal pain men, vaginal bleeding, weakness, fever, dyspnea, syncope, headache, dizziness, GI bleed, back pain, seizure, CVA, palpatations, mental health, musculoskeletal)? @ -Differential Back Pain: Strain, zoster, cauda equina syndrome, epidural abscess, vertebral osteomyelitis , discitis, fracture, subluxation, disc herniation, DJD, spinal stenosis, dissection, AAA, pancreatitis, peptic ulcer disease, pyelonephritis, kidney stone, this is not meant to be an all-inclusive list. EKG interpreted by me (3pts min.). @ -n/a X-rays interpreted by me (1pt min.). @ -yes X-ray lumbar spine interpreted by me shows moderate degenerative disc space narrowing throughout. CT interpreted by me (1pt min.). @ -None done U/S interpreted by me (1pt. min.). @ -None done What testing was considered but not performed or refused? (CT, X-rays, U/S, labs)? Why? @ -None What meds were considered but not given or refused? Why? @ -None Did you discuss the management of the patient with other professionals (professionals i.e. Dr., PA, HOME FIRE ALARM INSTALLER, lab, RT, psych nurse, geriatric social worker, graphic design teacher, teacher, account officer, case packer)? Give summary @ -No Was smoking cessation discussed for >3mins.? @ -No Was critical care preformed (if so, how long)? @ -No Were there social determinants of health that impacted care today? How? (Homelessness, low income, unemployed, alcoholism, drug addiction, transportation, low edu. Level, literacy, decrease access to med. care, group home, rehab)? @ -No Was there de-escalation of care discussed even if they declined (Discuss DNR or withdrawal of care, Hospice)? DNR status @ -No What co-morbidities impacted this encounter? (DM, HTN, Smoking, COPD, CAD, Cancer, CVA, ARF, Chemo, Hep., AIDS, mental health diagnosis, sleep apnea, morbid obesity)? @ -History of oral cancer in remission, chronic back pain Was patient admitted / discharged? Hospital course, mention meds given and route, prescriptions, significant lab abnormalities, going to OR and other pertinent info. @ -Discharged 37-year-old cachectic female presents ambulatory with complaints of left lower back pain that shoots up into her left flank from her left buttock. Patient states she has chronic low back pain however this is a shooting pain that is new. States that it is worse when she bent over to waste picker water at [employer] yesterday. Did see her chiropractor on which has always helped her in the past. Denies any fevers. No dysuria or hematuria. Does have a history of oral cancer has been in remission, degenerative disc disease. She denies any bowel or bladder incontinence. No significant weight loss, no fevers, no trauma. Patient is ambulatory with a steady gait. No saddle anesthesia. X-ray performed as patient does have a history of oral cancer and denies any recent imaging. The radiologist interpretation no acute fracture dislocation seen in the lumbar spine. This is likely musculoskeletal pain as patient states pain is worse when she is bending or twisting. Initially felt when she bent over to waste picker water at [employer]. Patient was given a shot of Norflex and Decadron. Lidoderm patch was applied. Prescription for Lidoderm patches prescribed. Directed to continue to take Tylenol and Motrin as needed for any pain or discomfort follow-up with primary care doctor. Case discussed with Dr. Jasso Undiagnosed new problem with uncertain prognosis? @ -No Drug Therapy requiring intensive monitoring for toxicity (Heparin, Nitro, Insulin, Cardizem)? @ -No Were any procedures done? @ -No Diagnosis/symptom? @ -Acute low back pain Acute, or Chronic, or Acute on Chronic? @ -Acute on chronic Uncomplicated (without systemic symptoms) or Complicated (systemic symptoms)? @ -Uncomplicated Side effects of treatment? @ -No Exacerbation, Progression, or Severe Exacerbation? @ -No Poses a threat to life or bodily function? How? (Chest pain, [place], [place], pneumonia, PE, COPD, DKA, ARF, appy, cholecystitis, CVA, Diverticulitis, Homicidal, Suicidal, threat to staff... and all critical care pts) @ -No Disposition Clinical Impression: Low back pain Disposition: HOME SELF-CARE Condition: Good Instructions (If sedation given, give patient instructions): Acute Low Back Pain (ED) Additional Instructions: Tylenol and Motrin for any pain or discomfort. Use Lidoderm patches for pain relief. Follow-up with the primary care doctor this week. Return to the emergency room with any new or concerning symptoms Prescriptions: Lidocaine 5% Patch [Lidoderm] 1 patch TOPICAL DAILY 14 Days #14 patch Is patient prescribed a controlled substance at d/c from ED?: No Referrals: Rocio Carrasco PAC [REFERRING] - 1-2 days Time of Disposition: 10:44
--- NOTE | 2023-06-12 10:30 | XR ---
EXAMINATION TYPE: XR lumbar spine 2 or 3V DATE OF EXAM: 06/12/2023 CLINICAL HISTORY: pain TECHNIQUE: Three views of the lumbar spine are submitted. COMPARISON: None. FINDINGS: There are 5 lumbar type vertebral bodies identified. The lumbar spine shows satisfactory alignment w ithout evidence of acute fracture or dislocation. Vertebral body heights are within normal limits. Gr denys 1 anterolisthesis L5 on S1 measuring 5.3 millimeters. Severe facet joint arthropathy. Mild-to-mod erate degenerative disc space narrowing seen throughout. The overlying soft tissue appears unremarkab le. IMPRESSION: No acute fracture or dislocation is seen in the lumbar spine. ICD 10 NO FRACTURE, INITIAL EVALUATION
[2023-06-12] MEDS ORDERED: LIDOCAINE 5% PATCH TOPICAL SCH (10:45)
== END 2023-06-12 10:55 | disposition home or self-care (01) ==
LOC: EC 09:11
DX: M54.50 Low back pain, unspecified (principal); Z88.5 Allergy status to narcotic agent
CPT/HCPCS: 72100; 99283; 96372 ×2; J1100; J2360

== ENCOUNTER → 2024-07-19 | Outpatient (CLI) | payer BC ==
--- NOTE | 2024-07-20 11:07 | MM ---
Reason for Exam: Screening (asymptomatic). Last mammogram was performed 1 year(s) and 1 month(s) ago. Patient History: Menarche at age 12. Patient has no children. Right ovary removed at age 15. Hysterectomy at age 15. Risk Values: Margaret 5 year model risk: 1.5%. NCI Lifetime model risk: 8.5%. Prior Study Comparison: 08/21/2020 Right Diagnostic Mammogram, [facility]. 10/21/2021 Bilateral Screening Mammogram, [facility]. 07/11/2023 Bilateral MG 3D screening mammo w/cad, [facility]. Tissue Density: There are scattered areas of fibroglandular density. Findings: Analyzed By CAD. Right breast: There is no suspicious group of microcalcifications or new suspicious mass. Left breast: There is no suspicious group of microcalcifications or new suspicious mass. Overall Assessment: Negative, BI-RAD 1 Management: Screening Mammogram of both breasts in [address] [facility] will attempt to contact patient to return for supplemental views and ultrasound if indicated. Patient should continue monthly self-breast exams. A clinical breast exam by your physician is recommended on an annual basis. This exam should not preclude additional follow-up of suspicious palpable abnormalities. Note on Margaret scores and lifetime risk: 1. A Margaret score greater than 3% is considered moderate risk. If this is the case, consider specialist referral to assess eligibility for a risk reducing agent. 2. If overall lifetime risk for the development of breast cancer is 20% or higher, the patient may qualify for future screening with alternating mammogram and breast MRI. [facility], , 07/20/2024 11:03 AM. Electronically signed and approved by: Sushant Earl DO
== END | disposition home or self-care (01) ==
LOC: RADMAMWWP 15:55
PROVIDERS: ATTEND Family Medicine
DX: Z12.31 Encounter for screening mammogram for malignant neoplasm of breast
CPT/HCPCS: 77067

== ENCOUNTER 2025-02-06 11:41 | Emergency (ER) | payer BC, OTHER ==
[2025-02-06] MEDS: MAG HYDROX/AL HYDROX/SIMETH 30 ML CUP PO STA (13:22)
[2025-02-06] MEDS: ONDANSETRON ODT 4 MG TAB PO STA (13:22)
--- NOTE | 2025-02-06 13:40 | ED ---
Recheck HPI - General Chief Complaint: Recheck/Abnormal Lab/Rx Stated Complaint: Medication Reaction Time Seen by Provider: 02/06/25 11:52 Source: patient, RN notes reviewed Mode of arrival: ambulatory Limitations: no limitations - History of Present Illness Initial Comments: 59-year-old female presents emergency department with chief complaint of nausea upset stomach. Patient states that she took Tylenol codeine for the first time today states that it was very upsetting her stomach she has vomited she states she has burning of her stomach now. Denies any chest pain shortness of breath no back pain out of the usual states she has chronic pain. Patient denies any fever chills no other associate symptoms - Related Data Home Medications Medication Instructions Recorded Confirmed Levothyroxine Sodium [Synthroid] 50 mcg PO DAILY 02/18/20 04/24/22 Aspirin EC [Ecotrin Low Dose] 81 mg PO DAILY 04/24/22 04/24/22 Atorvastatin [Lipitor] 20 mg PO HS 04/24/22 04/24/22 oxyCODONE HCL [Roxicodone] 5 mg PO Q4H PRN 04/24/22 04/24/22 Previous Rx's Medication Instructions Recorded Lidocaine 5% Patch [Lidoderm] 1 patch TOPICAL DAILY 14 Days #14 06/12/23 patch Ondansetron Odt [Zofran Odt] 4 mg PO Q8HR PRN #10 tab 02/06/25 Allergies Allergy/AdvReac Type Severity Reaction Status Date / Time tramadol AdvReac LIGHTHEADED Verified 02/06/25 11:46 Review of Systems ROS Statement: Those systems with pertinent positive or pertinent negative responses have been documented in the HPI. ROS Other: All systems not noted in ROS Statement are negative. Past Medical History Past Medical History: Cancer Additional Past Medical History / Comment(s): oral cancer History of Any Multi-Drug Resistant Organisms: None Reported Past Surgical History: Hysterectomy Past Psychological History: No Psychological Hx Reported Smoking Status: Never smoker Past Alcohol Use History: None Reported, Occasional Past Drug Use History: None Reported General Exam Limitations: no limitations General appearance: alert, in no apparent distress Head exam: Present: atraumatic, normocephalic, normal inspection Eye exam: Present: normal appearance, PERRL, EOMI. Absent: scleral icterus, conjunctival injection, periorbital swelling ENT exam: Present: normal exam, normal oropharynx, mucous membranes moist Neck exam: Present: normal inspection, full ROM. Absent: tenderness, meningismus, lymphadenopathy Respiratory exam: Present: normal lung sounds bilaterally. Absent: respiratory distress, wheezes, rales, rhonchi, stridor Cardiovascular Exam: Present: regular rate, normal rhythm, normal heart sounds. Absent: systolic murmur, diastolic murmur, rubs, gallop, clicks GI/Abdominal exam: Present: soft, normal bowel sounds. Absent: distended, tenderness, guarding, rebound, rigid Course Vital Signs 02/06/25 02/06/25 11:43 13:20 Temperature 97.6 F Pulse Rate 63 61 Respiratory 20 16 Rate Blood Pressure 157/87 125/80 O2 Sat by Pulse 98 98 Oximetry Medical Decision Making - Medical Decision Making Was pt. sent in by a medical professional or institution (, PA, HIGH FREQUENCY MILL OPERATOR, urgent care, hospital, or senior care...) When possible be specific @ -No Did you speak to anyone other than the patient for history (EMS, parent, family, police, friend...)? What history was obtained from this source @ -No Did you review nursing and triage notes (agree or disagree)? Why? @ -I reviewed and agree with nursing and triage notes Were old charts reviewed (outside hosp., previous admission, EMS record, old EKG, old radiological studies, urgent care reports/EKG's, senior care records)? Report findings @ -No old charts were reviewed Differential Diagnosis (chest pain, altered mental status, abdominal pain women, abdominal pain men, vaginal bleeding, weakness, fever, dyspnea, syncope, headache, dizziness, GI bleed, back pain, seizure, CVA, palpatations, mental health, musculoskeletal)? @ -Medication reaction, nausea, vomiting, gastroenteritis EKG interpreted by me (3pts min.). @ -None X-rays interpreted by me (1pt min.). @ -None done CT interpreted by me (1pt min.). @ -None done U/S interpreted by me (1pt. min.). @ -None done What testing was considered but not performed or refused? (CT, X-rays, U/S, labs)? Why? @ -None What meds were considered but not given or refused? Why? @ -None Did you discuss the management of the patient with other professionals (professionals i.e. , PA, HIGH FREQUENCY MILL OPERATOR, lab, RT, psych nurse, older adult social work specialist, clerical administrative assistant, teacher, port patrol officer, human services case manager)? Give summary @ -No Was smoking cessation discussed for >3mins.? @ -No Was critical care preformed (if so, how long)? @ -No Were there social determinants of health that impacted care today? How? (Homelessness, low income, unemployed, alcoholism, drug addiction, transportation, low edu. Level, literacy, decrease access to med. care, senior care, rehab)? @ -No Was there de-escalation of care discussed even if they declined (Discuss DNR or withdrawal of care, Hospice)? DNR status @ -No What co-morbidities impacted this encounter? (DM, HTN, Smoking, COPD, CAD, Cancer, CVA, ARF, Chemo, Hep., AIDS, mental health diagnosis, sleep apnea, morbid obesity)? @ -None Was patient admitted / discharged? Hospital course, mention meds given and route, prescriptions, significant lab abnormalities, going to OR and other pertinent info. @ -Discharge patient felt improved after Zofran. Patient had nausea related to dental coating. She had no abdominal tenderness. Patient requesting discharge Undiagnosed new problem with uncertain prognosis? @ -No Drug Therapy requiring intensive monitoring for toxicity (Heparin, Nitro, Insulin, Cardizem)? @ -No Were any procedures done? @ -No Diagnosis/symptom? @ -Medication reaction, nausea Acute, or Chronic, or Acute on Chronic? @ -Acute Uncomplicated (without systemic symptoms) or Complicated (systemic symptoms)? @ -Uncomplicated Side effects of treatment? @ -No Exacerbation, Progression, or Severe Exacerbation? @ -No Poses a threat to life or bodily function? How? (Chest pain, USA, CT, pneumonia, PE, COPD, DKA, ARF, appy, cholecystitis, CVA, Diverticulitis, Homicidal, Suicidal, threat to staff... and all critical care pts) @ -No Disposition Clinical Impression: Nausea, Medication reaction Disposition: HOME SELF-CARE Condition: Stable Instructions (If sedation given, give patient instructions): Acute Nausea and Vomiting (ED) Additional Instructions: Please return to the Emergency Department if symptoms worsen or any other concerns. Prescriptions: Ondansetron Odt [Zofran Odt] 4 mg PO Q8HR PRN #10 tab PRN Reason: Nausea Is patient prescribed a controlled substance at d/c from ED?: No Referrals: Wilmar Anaya MD [Primary Care Provider] - 1-2 days Time of Disposition: 14:48
[2025-02-06 15:23] VITALS: RESP 17
[2025-02-06] MEDS: METOCLOPRAMIDE 10 MG TAB PO STA (15:23)
[2025-02-06 15:52] VITALS: BP 145/85; PULSE 66; TEMP 97.7
== END 2025-02-06 16:13 | disposition home or self-care (01) ==
LOC: EC 11:41
DX: R11.0 Nausea (principal); T50.905A Adverse effect of unspecified drugs, medicaments and biological substances, initial encounter; Z88.5 Allergy status to narcotic agent
CPT/HCPCS: 99283